=== PATIENT | male | born 1950 | race Caucasian/White ===

== ENCOUNTER → 2018-03-05 07:56 | Outpatient (CLI) | payer BC, SELFPAY ==
[2018-03-05 09:44] LABS: Blood Urea Nitrogen 23 mg/dL (9-20); Calcium 9.4 mg/dL (8.4-10.2); Carbon Dioxide 30 mmol/L (22-32); Chloride 100 mmol/L (98-107); Cholesterol 195 mg/dL (140-199); Estimated Glomerular Filt Rate > 60.0 mL/min (>60); Glucose 101 mg/dL (80-110); HDL Cholesterol 36 mg/dL (40-60); HEMOLYSIS < 15 (0-50); LDL Cholesterol Calculated 131 mg/dL (<100); Potassium 4.2 mmol/L (3.4-5.1); Sodium 139 mmol/L (137-145); Triglycerides 138 mg/dL (35-150)
[2018-03-05 10:12] LABS: Prostate Specific Antigen Scrn 2.31 ng/mL (0.1-4.0)
== END ==
PROVIDERS: Visit Provider Physician Assistant
DX: I10 Essential (primary) hypertension (principal); E78.2 Mixed hyperlipidemia; G60.9 Hereditary and idiopathic neuropathy, unspecified
CPT/HCPCS: 36415; 80048; 80061; G0103

== ENCOUNTER → 2019-02-11 08:26 | Outpatient (CLI) | payer BC, SELFPAY ==
[2019-02-11 10:57] LABS: Alanine Aminotransferase 45 IU/L (21-72); Albumin 4.7 g/dL (3.5-5.0); Albumin Globulin Ratio 1.7 (1.0-2.8); Alkaline Phosphatase 56 U/L (38-126); Aspartate Aminotransferase 35 IU/L (17-59); BUN Creatinine Ratio 24.4 (6-22); Bilirubin Total 0.7 mg/dL (0.2-1.3); Blood Urea Nitrogen 22 mg/dL (9-20); Calcium 9.4 mg/dL (8.4-10.2); Carbon Dioxide 27 mmol/L (22-32); Chloride 102 mmol/L (98-107); Cholesterol 208 mg/dL (140-199); Estimated Glomerular Filt Rate > 60.0 mL/min (>60); Globulin 2.8 g/dL (1.7-4.1); Glucose 97 mg/dL (80-110); HDL Cholesterol 32 mg/dL (40-60); HEMOLYSIS < 15 (0-50); LDL Cholesterol Calculated 124 mg/dL (<100); Potassium 3.7 mmol/L (3.4-5.1); Sodium 139 mmol/L (137-145); Total Protein 7.5 g/dL (6.3-8.2); Triglycerides 259 mg/dL (35-150)
== END ==
PROVIDERS: PCP Internal Medicine; Visit Provider Internal Medicine
DX: I10 Essential (primary) hypertension (principal); R53.83 Other fatigue; E78.2 Mixed hyperlipidemia
CPT/HCPCS: 36415; 80053; 80061

== ENCOUNTER → 2020-01-02 06:59 | Outpatient (CLI) | payer BC, SELFPAY ==
[2020-01-03 12:08] LABS: SARS CoV19 IgG Negative (Negative)
== END ==
PROVIDERS: PCP Internal Medicine; Referring Provider Internal Medicine; Visit Provider Internal Medicine
DX: Z71.89 Other specified counseling (principal)
CPT/HCPCS: 36415; 86769

== ENCOUNTER → 2020-03-01 07:01 | Outpatient (CLI) | payer BC, SELFPAY ==
--- NOTE | 2020-03-01 | DI.MRI.S_ITS ---
PROCEDURE: MR HEAD/BRAIN WO/W CON INDICATIONS: Headache TECHNIQUE: Noncontrast axial T1 spin echo, axial T2 fast spin echo, sagittal and axial FLAIR, coronal T2 fast spin echo, axial gradient echo, axial diffusion and ADC through the brain. After the administration of contrast, axial and coronal T1 spin echo with fat saturation through the brain. COMPARISON: None. FINDINGS: Image quality: Excellent. CSF spaces: Basal cisterns are patent. No extra-axial fluid collections. Ventricles are normal in size and shape. Brain: No midline shift. No intracranial bleeds or masses. No abnormal intracranial enhancement. There is cerebral volume loss for age. There is periventricular white matter chronic small vessel ischemic change. There is a 10 mm diameter focus of moderate FLAIR signal elevation within the left posterolateral frontal lobe subcortical white matter. The brainstem appears normal. Diffusion-weighted images demonstrate no acute ischemic insults. No chronic ischemic insults. Normal intravascular flow voids are present. Skull and face: Calvarial marrow is normal in signal. Orbits appear normal. Sinuses: Sinuses and mastoids appear clear. IMPRESSION: 1. Mild volume loss. Minimal small vessel ischemic disease. 2. High FLAIR signal focus within the left frontal subcortical white matter. Differential considerations include small vessel ischemic disease versus migraine. 3. No acute process. No recent infarct. Dictated by: Ganesh Orellana M.D. on 03/01/2020 at 8:18 Approved by: Ganesh Orellana M.D. on 03/01/2020 at 8:20
== END ==
PROVIDERS: PCP Internal Medicine; Referring Provider Internal Medicine; Visit Provider Internal Medicine
DX: R51 Headache (principal)
CPT/HCPCS: 70553

== ENCOUNTER → 2020-04-17 06:53 | Outpatient (CLI) | payer BC, SELFPAY ==
--- NOTE | 2020-04-17 | DI.RAD.S_ITS ---
PROCEDURE: XR CHEST 2V INDICATIONS: Pulmonary cause of hyponatremia TECHNIQUE: 2 views of the chest were acquired. COMPARISON: [facility], , CHEST 1 VIEW, 06/07/2016, 3:35. FINDINGS: Surgical changes and devices: None. Lungs and pleura: Lungs are clear. No pleural effusions or pneumothorax. Mediastinum: Mediastinal contours are normal. Heart size is normal. Bones and chest wall: No suspicious bony abnormalities. Soft tissues appear unremarkable. IMPRESSION: No acute pulmonary process. Dictated by: Sherron Cuevas M.D. on 04/17/2020 at 14:38 Approved by: Sherron Cuevas M.D. on 04/17/2020 at 14:38
[2020-04-17 08:47] LABS: Sodium Urine Random 92 mmol/L (30-90)
[2020-04-17 09:23] LABS: BUN Creatinine Ratio 14.8 (6-22); Blood Urea Nitrogen 12 mg/dL (9-20); Calcium 9.6 mg/dL (8.4-10.2); Carbon Dioxide 28 mmol/L (22-32); Chloride 93 mmol/L (98-107); Estimated Glomerular Filt Rate > 60.0 mL/min (>60); Glucose 101 mg/dL (80-110); HEMOLYSIS < 15 (0-50); Potassium 2.9 mmol/L (3.4-5.1); Sodium 134 mmol/L (137-145)
[2020-04-18 14:25] LABS: Osmolality Urine 417 mOsmol/kg (.); Osmolality, Serum 277 mOsmol/kg (280-301)
== END ==
PROVIDERS: PCP Internal Medicine; Referring Provider Internal Medicine; Visit Provider Internal Medicine
DX: E87.1 Hypo-osmolality and hyponatremia (principal); E87.6 Hypokalemia
CPT/HCPCS: 36415; 71046; 80048; 83930; 83935; 84300

== ENCOUNTER → 2020-12-12 07:33 | Outpatient (CLI) | payer BC, SELFPAY ==
--- NOTE | 2020-12-12 | DI.ECHO.S_ITS ---
[place] +---------+ [facility] +---------+ : : [address] : : : : [id number] : : : : Phone: [phone] Echocardiogram Report + + :Name: VAISHNAVI JACOB Study Date: 12/12/2020 Height: 70 in : :[facility] ReadingLocation: Weight: 215 lb : : Gender: Male BSA: 2.2 m2 : :: 1950 Age: 70 yrs BP: 180/82 mmHg: :Reason For Study: Edema : :Ordering Physician: CHRISTOFER, : :GERRY Performed By: Aniceto Khoury : :Referring: GERRY BEAULIEU : + + Interpretation Summary Sinus bradycardia. Heart rate is 49-71 bpm. Normal LV size and wall thickness. Normal wall motion and LV systolic function. EF is 60-65%. Normal chamber sizes. No significant valvular abnormalities. PA systolic pressure is 40 mm Hg. Compared to prior study no changes have occurred. Procedure: A two-dimensional transthoracic echocardiogram with color flow and Doppler was performed. The study quality was technically adequate. Comparison is made with the echocardiogram of 07/15/2018. The patient was in sinus rhythm with heart rates between 49-71 bpm during the exam. Left Ventricle: The left ventricle is normal in size and wall thickness. Left ventricular systolic function is normal. The ejection fraction is estimated to be 60-65%. There are no focal wall motion abnormalities. Diastolic parameters suggest probable normal left ventricular diastolic function and normal filling pressures. Right Ventricle: The right ventricle is normal in size and function. Atria: Both atria are normal in size. There is no Doppler evidence for an interatrial shunt. Mitral Valve: The mitral valve is normal in structure and function. There is trace mitral regurgitation. Aortic Valve: The aortic valve is normal in structure and function. No aortic regurgitation is present. Tricuspid Valve: The tricuspid valve is normal in structure and function. There is mild tricuspid regurgitation. The right ventricular systolic pressure is estimated to be at least 40 mmHg based on an estimated right atrial pressure of 8 mm Hg. Pulmonic Valve: The pulmonic valve is normal in structure and function. There is mild pulmonic regurgitation. Great Vessels: The aortic root is normal size. The ascending aorta could not be visualized. The IVC is dilated (diameter is greater than 2.1 cm) yet it collapses greater than 50% with a sniff. This suggests a right atrial pressure of 8 mm Hg. Pericardium/ Pleura There is no pericardial effusion. There is no pleural effusion. MMode/2D Measurements & Calculations LVIDd: 5.2 cm LVOT diam: 2.1 cm LVIDs: 3.4 cm Ao root diam: 3.3 cm FS: 33.9 % IVSd: 0.94 cm LVPWd: 0.86 cm LV singer. diameter/BSA (cm/m^2): 2.4 LV sys. diameter/BSA (cm/m^2): 1.6 LA A2 area: 18.6 cm2 RA area: 14.2 cm2 LA A4 area: 12.7 cm2 IVC diam: 2.3 cm LA length (vol): 4.7 cm LA vol: 42.8 ml LA vol index: 19.9 ml/m2 RVD1 (basal): 3.5 cm TAPSE: 2.1 cm Doppler Measurements & Calculations Ao V2 max: 134.6 cm/sec LVOT Max Howard: 128.3 cm/sec Ao V2 mean: 90.2 cm/sec LV V1 max P.6 mmHg Ao max P.2 mmHg LV V1 VTI: 27.8 cm Ao mean P.6 mmHg JAIRO(I,D): 3.5 cm2 Ao V2 VTI: 28.1 cm JAIRO(V,D): 3.3 cm2 sev ratio: 0.99 JAIRO indexed to BSA (cm^2/m^2): 1.6 MV E max howard: 93.0 cm/sec TR max howard: 288.0 cm/sec MV A max howard: 78.0 cm/sec TR max P.2 mmHg MV E/A: 1.2 PA V2 max: 96.1 cm/sec Med Peak E' Howard: 9.1 cm/sec PA V2 mean: 70.0 cm/sec E/E' med: 10.3 PA mean P.1 mmHg Lat Peak E' Howard: 12.4 cm/sec PA pr(Accel): 27.1 mmHg E/E' lat: 7.5 E/e' average: 8.9 MV dec time: 0.25 sec SV(LVOT): 97.6 ml Electronically signed by: Rajwinder Peralta M.D. on Reading Physician:12/13/2020 12:35 AM
== END ==
PROVIDERS: PCP Student in an Organized Health Care Education/Training Program; Referring Provider Student in an Organized Health Care Education/Training Program; Visit Provider Student in an Organized Health Care Education/Training Program
DX: I07.1 Rheumatic tricuspid insufficiency (principal); R60.9 Edema, unspecified
CPT/HCPCS: 93306

== ENCOUNTER → 2022-01-02 09:39 | Outpatient (CLI) | payer MEDICARE, OTHER, SELFPAY ==
--- NOTE | 2022-01-02 09:45 | DI.RAD.S_ITS ---
PROCEDURE: XR KNEE RT 3V INDICATIONS: KNEE PAIN TECHNIQUE: 3 views of the knee were acquired. COMPARISON: None. FINDINGS: Bones: No acute fractures or dislocations. No suspicious bony lesions. Mild narrowing of the medial femorotibial compartment joint space and the lateral portion of the patellofemoral compartment joint space. Soft tissues: No joint effusion. No suspicious soft tissue calcifications. IMPRESSION: Mild osteoarthrosis. No acute osseous abnormality. If the symptoms persist, consider cross sectional imaging such as MRI or CT for further assessment. Dictated by: Harpal Stovall M.D. on 01/02/2022 at 10:25 Approved by: Harpal Stovall M.D. on 01/02/2022 at 10:26
== END ==
PROVIDERS: PCP Nurse Practitioner Family; Referring Provider Nurse Practitioner Family; Visit Provider Nurse Practitioner Family
DX: M17.11 Unilateral primary osteoarthritis, right knee (principal); M25.561 Pain in right knee
CPT/HCPCS: 73562

== ENCOUNTER → 2022-09-27 13:57 | Outpatient (CLI) | payer MEDICARE, OTHER, SELFPAY ==
--- NOTE | 2022-09-27 14:14 | DI.MRI.S_ITS ---
PROCEDURE: MR CERVICAL SPINE WO/W CON INDICATIONS: Unspecified mononeuropathy of bilateral upper limb TECHNIQUE: Noncontrast sagittal T1 spin echo and T2 fast spin echo, sagittal STIR, foraminal oblique sagittal T2 fast spin echo, axial gradient echo or T2 fast spin echo through the cervical spine. After the administration of contrast, axial and sagittal T1 spin echo with fat saturation through the cervical spine. COMPARISON: None. FINDINGS: Image quality: Excellent. Alignment and curvature: There is normal bony alignment. Marrow: Marrow is normal in overall signal, without suspicious enhancement. Spinal cord: Visualized spinal cord has normal size and signal. No cerebellar tonsillar herniation. No abnormal intramedullary enhancement. Regional soft tissues: No paravertebral masses or suspicious enhancement. C2-3: No spinal canal stenosis. Mild neural foraminal narrowing on the right due to facet and uncovertebral hypertrophy. C3-4: Moderate bilateral neural foraminal narrowing due to facet and uncovertebral hypertrophy. Mild spinal canal stenosis due to posterior disc-osteophyte complex without mass effect upon the cord. C4-5: Mild flattening of the ventral cord by posterior disc osteophyte complex. Severe bilateral neural foraminal narrowing due to facet and uncovertebral hypertrophy. C5-6: Moderate to severe bilateral neural foraminal narrowing due to facet and uncovertebral hypertrophy, right greater than left. Mild flattening of the ventral cord due to posterior disc osteophyte complex. C6-7: Mild spinal canal stenosis due to posterior disc osteophyte complex. Severe right and moderate left neural foraminal narrowing due to facet and uncovertebral hypertrophy. C7-T1: Mild neural foraminal narrowing without spinal canal stenosis. IMPRESSION: Multilevel multifactorial degenerative changes as detailed above with varying degrees of neural foraminal stenosis up to severe. Dictated by: Vance Flores M.D. on 09/28/2022 at 15:16 Approved by: Vance Flores M.D. on 09/28/2022 at 15:18
== END ==
PROVIDERS: PCP Nurse Practitioner Family; Referring Provider Nurse Practitioner Family; Visit Provider Nurse Practitioner Family
DX: M47.812 Spondylosis without myelopathy or radiculopathy, cervical region (principal); M48.02 Spinal stenosis, cervical region; G56.93 Unspecified mononeuropathy of bilateral upper limbs
CPT/HCPCS: 72156; A9579

== ENCOUNTER → 2024-03-02 07:36 | Outpatient (CLI) | payer MEDICARE, OTHER, SELFPAY ==
--- NOTE | 2024-03-02 | DI.US.S_ITS ---
PROCEDURE: US ABDOMEN COMPLETE COMPARISON: None. INDICATIONS: Abnormal levels of other serum enzymes,Proton pump FINDINGS: Liver is normal in size and contour. . Gallbladder is normal with no thickening of gallbladder wall or pericholecystic fluid.. Common bile duct is prominent measuring 7 mm in diameter. Pancreas not visualized due to overlying bowel gas. Kidneys: Simple cyst right kidney measuring 1.7 by 1.4 x 1.5 cm. No hydronephrosis. IMPRESSION: Simple cyst in the right kidney. Common bile duct is prominent. Dictated by: Lit Paulson M.D. on 03/02/2024 at 11:09 Approved by: Lit Paulson M.D. on 03/02/2024 at 11:20
== END ==
PROVIDERS: PCP Nurse Practitioner Family; Referring Provider Nurse Practitioner Family; Visit Provider Nurse Practitioner Family
DX: R79.89 Other specified abnormal findings of blood chemistry (principal); R74.8 Abnormal levels of other serum enzymes; Z91.89 Other specified personal risk factors, not elsewhere classified; N28.1 Cyst of kidney, acquired
CPT/HCPCS: 76700

== ENCOUNTER → 2024-04-13 09:39 | Outpatient (CLI) | payer MEDICARE, OTHER, SELFPAY ==
--- NOTE | 2024-04-13 09:41 | DI.RAD.S_ITS ---
PROCEDURE: XR DEXA AXIAL SKELETON INDICATIONS: SCREENING COMPARISON: None. FINDINGS: Lumbar Spine: Bone mineral density 1.401 g/cm2, T score 3.5. Left Hip: Bone mineral density 1.155 g/cm2, T score 1.7. Left Femoral Neck: Bone mineral density 0.824 g/cm2, T score -0.2. Right Hip: Bone mineral density 1.152 g/cm2, T score 1.7. Right Femoral Neck: Bone mineral density is 0.904 g/cm2, T score 0.5. Fracture Risk Calculation (when applicable): FRAX score not reported due to T-scores greater than -1.0. (T score greater or equal to -1.0 to: NORMAL) (T score from -1.1 to -2.4: OSTEOPENIA) (T score less than or equal to -2.5: OSTEOPOROSIS) IMPRESSION: By WHO criteria, patient has normal bone mineral density. Follow-up guidelines as follows: Osteoporosis: Consider a repeat DEXA and Vertebral Fracture Assessment (VFA) exam in 2 years or sooner if medically necessary, to reassess this patient's status. Osteopenia: Consider a repeat DEXA in 2-3 years to reassess this patient's status, or if there is a new clinical indication. Normal: Consider a repeat DEXA in 5 years or sooner, or if there is a new clinical indication. All treatment decisions require clinical judgment and consideration of individual patient factors, including patient preferences, comorbidities, previous drug use, risk factors not captured in the FRAX model (e.g., frailty, falls, vitamin D deficiency, increased bone turnover, interval significant decline in bone density ) and possible under- or over-estimation of fracture risk by FRAX. In addition, the NOF Guide recommends that FDA-approved medical therapies be considered in postmenopausal women and men age >= 50 years with a: * Hip or vertebral (clinical or morphometric) fracture * T-score of <=-2.5 at the spine or hip * Ten-year fracture probability by FRAX of >= 3% for hip fracture or >=20% for major osteoporotic fracture. People with diagnosed cases of osteoporosis or at high risk for fracture should have regular bone mineral density tests. For patients eligible for Medicare, routine testing is allowed once every 2 years. The testing frequency can be increased to one year for patients who have rapidly progressing disease, those who are receiving or discontinuing medical therapy to restore bone mass, or have additional risk factors. Approved by: Harpal Stovall M.D. on 04/13/2024 at 12:43
== END ==
LOC: RAD 09:40
PROVIDERS: PCP Nurse Practitioner Family; Referring Provider Nurse Practitioner Family; Visit Provider Nurse Practitioner Family
DX: Z13.820 Encounter for screening for osteoporosis; R93.7 Abnormal findings on diagnostic imaging of other parts of musculoskeletal system
CPT/HCPCS: 77080

== ENCOUNTER 2024-04-16 12:21 | Inpatient (IN) | payer MEDICARE, OTHER, SELFPAY ==
[2024-04-16] VITALS (12 sets, daily range): BP systolic 158–175; BP diastolic 67–78; PULSE 63–78; RESP 14–16; TEMP 36.4–36.8; O2SAT 92–97; BMI 32.6
--- NOTE | 2024-04-16 12:50 | ED_ITS ---
HPI - General Adult General Chief complaint: Abdominal Pain Stated complaint: abd px, vomiting Time Seen by Provider: 04/16/24 12:39 Source: patient Mode of arrival: Family Vehicle History of Present Illness HPI narrative: Patient is a 73-year-old male here for evaluation of abdominal pain, bloating and vomiting. He states that the symptoms started approximately 0700 hours this morning. Went to bed last night without any issues. Woke up this morning without any symptoms. Urinating without any issues. Had a bowel movement this morning. Is still passing flatus. He does have an umbilical hernia that has been there for years. He has been unable to reduce it this morning. Related Data Home Medications Medication Instructions Recorded Confirmed chlorthalidone 25 mg tablet 50 mg PO QAM 04/16/24 04/16/24 diltiazem HCl 240 mg 240 mg PO DAILY 04/16/24 04/16/24 capsule,extended release 24 hr, controlled diltiazem HCl 240 mg 240 mg PO DAILY 04/16/24 04/16/24 capsule,extended release 24 hr, controlled losartan 100 mg tablet 100 mg PO DAILY 04/16/24 04/16/24 losartan 100 mg tablet 100 mg PO DAILY 04/16/24 04/16/24 metoprolol succinate 50 mg 25 mg PO QAM 04/16/24 04/16/24 tablet,extended release 24 hr metoprolol succinate 50 mg 25 mg PO QAM 04/16/24 04/16/24 tablet,extended release 24 hr potassium chloride 10 mEq 10 meq PO 4XD 04/16/24 04/16/24 tablet,extended release tadalafil 10 mg tablet 5 - 10 mg PO DAILY PRN Erectile 04/16/24 04/16/24 Dysfunction Allergies Allergy/AdvReac Type Severity Reaction Status Date / Time No Known Drug Allergies Allergy Verified 04/16/24 12:46 Review of Systems Review of Systems ROS Unobtainable: All systems reviewed & are unremarkable except as noted in HPI and below Patient History Social History Smoking Status: Never smoker Smoking Status: Never smoker alcohol intake frequency: 0-2 drinks per day Substance Use Type: does not use Exam Initial Vital Signs Initial Vital Signs: Vital Signs Pulse Rate 73 04/16/24 12:26 Pulse Oximetry 96 04/16/24 12:26 Const General: cooperative, comfortable and No ill appearing [facility] Head: normal to inspection and normocephalic Resp Effort & Inspection: normal respiratory effort Cardio Rate: regular rate GI Inspection: distended Palpation: soft, No guarding, hernia (Umbilical hernia) and tender Skin General: no rashes or lesions noted Neuro General: patient alert, patient awake, patient oriented x3 and moves all extremities Extrem General: capillary refill normal Course Orders Ordered: ED Orders 04/16/24 12:32 Complete Blood Count AUTO DIFF Stat Comprehensive Metabolic Panel Stat Lipase Stat 04/16/24 13:37 CT abdomen pelvis w con Stat 04/16/24 14:23 Consult to General Surgery Stat Heparin Sodium (Porcine) (Heparin 5,000 Unit/Ml Vial) 5,000 unit SUBCUT BID EVA Hydromorphone HCl (Hydromorphone 0.5 Mg Inj) 0.5 mg IV Q2H PRN PRN Reason: Pain, Severe (7-10) Sodium Chloride (Normal Saline 0.9%) 1,000 mls @ 100 mls/hr IV CONT EVA Naloxone HCl (Naloxone 0.4 Mg/Ml Vial) 0.2 mg IV Q2MIN PRN PRN Reason: Opiate Reversal Ondansetron HCl (Ondansetron 4 Mg/2 Ml Inj) 4 mg IV Q6HR PRN PRN Reason: nausea Discontinued Medications Sodium Chloride (Normal Saline 0.9%) 1,000 mls @ 500 mls/hr IV BOLUS ONE Stop: 04/16/24 14:57 Last Admin: 04/16/24 13:04 Dose: 500 mls/hr Documented By: DENI Morphine Sulfate (Morphine 4 Mg/Ml Inj) 4 mg IV NOW ONE Stop: 04/16/24 12:59 Last Admin: 04/16/24 13:03 Dose: 4 mg Documented By: TC Vital Signs Vital signs: Vital Signs - 8 hr 04/16/24 12:26 04/16/24 12:27 04/16/24 12:27 Temperature 98.2 F Pulse Rate 73 73 74 Respiratory Rate 16 Blood Pressure 175/78 H Pulse Oximetry 96 97 96 Oxygen Delivery Method Room Air 04/16/24 12:27 04/16/24 12:30 04/16/24 12:30 Temperature Pulse Rate 72 Respiratory Rate Blood Pressure 175/78 H 165/77 H Pulse Oximetry 94 Oxygen Delivery Method 04/16/24 13:00 04/16/24 13:00 04/16/24 13:35 Temperature Pulse Rate 70 70 Respiratory Rate Blood Pressure 165/72 H Pulse Oximetry 95 Oxygen Delivery Method 04/16/24 14:00 04/16/24 14:30 Temperature Pulse Rate 69 78 Respiratory Rate Blood Pressure Pulse Oximetry 92 93 Oxygen Delivery Method Medical Decision Making Lab Data Lab results reviewed: Yes I reviewed the patient's lab results. 04/16/24 12:32 04/16/24 12:32 Labs: Lab Results 04/16/24 Range/Units 12:32 WBC 8.5 (4.5-11.0) X10^3/uL RBC 4.98 (4.5-5.9) X10^6/uL Hgb 15.0 (13.5-17.5) g/dL Hct 43.7 (41-53) % MCV 87.7 (80-100) fL MCH 30.2 (26-34) PG MCHC 34.4 (30-36) % RDW 13.0 (11.6-14.8) % Plt Count 195 (150-400) X10^3/uL Neut % (Auto) 70.8 (50-75) % Lymph % (Auto) 14.7 L (25-40) % [place] % (Auto) 11.7 (3-14) % Eos % (Auto) 1.3 L (2-4) % Baso % (Auto) 1.5 (0-2) % Neut # (Auto) 6000 (5398-3085) /uL Lymph # (Auto) 1200 (0381-0468) /uL [place] # (Auto) 1000 H (0-900) /uL Eos # (Auto) 100 (0-450) /uL Baso # (Auto) 100 (0-100) /uL Sodium 139 (137-145) mmol/L Potassium 3.5 (3.4-5.1) mmol/L Chloride 106 (98-107) mmol/L Carbon Dioxide 22 (22-32) mmol/L BUN 25 H (9-20) mg/dL Creatinine 1.01 (0.66-1.25) mg/dL Estimated GFR > 60 (>60) mL/min BUN/Creatinine Ratio 24.8 H (6-22) Glucose 124 H (80-110) mg/dL Calcium 10.0 (8.4-10.2) mg/dL Total Bilirubin 0.7 (0.2-1.3) mg/dL AST 108 H (17-59) IU/L ALT 177 H (<50) IU/L Alkaline Phosphatase 86 (38-126) U/L Total Protein 8.1 (6.3-8.2) g/dL Albumin 4.7 (3.5-5.0) g/dL Globulin 3.4 (1.7-4.1) g/dL Albumin/Globulin Ratio 1.4 (1.0-2.8) Lipase 110 (23-300) U/L Imaging Data CT scan - abdomen/pelvis: Radiologist's Impression: PROCEDURE: CT ABDOMEN PELVIS W CON INDICATIONS: Abdominal distention and vomiting, TECHNIQUE: After the administration of intravenous contrast, axial sections acquired from the lung bases to the pubic symphysis. Coronal and sagittal reformats were performed. For radiation dose reduction, the following was used: automated exposure control, adjustment of mA and/or kV according to patient size. COMPARISON: None. FINDINGS: Image quality: Diagnostic. Lower Chest: No significant findings. ABDOMEN: Liver: No solid mass. Gallbladder: No radiopaque gallstones or wall thickening. Biliary ducts: No biliary dilation. Pancreas: No ductal dilation. Spleen: Size is within normal limits. Adrenal Glands: No adrenal nodules. Kidneys and Ureters: No hydronephrosis. No solid mass. No complex renal cystic lesion which requires follow up. Stomach and Bowel: Dilated loops of small bowel within the anterior abdomen starting at the mid jejunum extending to the mid ileum. This area has air-fluid levels and lies immediately posterior to a small umbilical hernia. There is mild inflammatory changes of the fat within the umbilical hernia. The current loops of bowel do not enter the hernia sac. There is no transition point and the gradual transit to normal caliber bowel by the mid ileum. Scattered colonic diverticula without evidence of acute diverticulitis. Peritoneum: No abnormal intraperitoneal fluid. No free air. Ventral Wall: Small fat containing umbilical hernia with mild inflammatory changes within the hernia sac. Abdominal Nodes: No retroperitoneal or mesenteric adenopathy by size criteria. Vessels: Aorta and inferior vena cava are normal in size. PELVIS: Pelvic Organs: Unremarkable. Bladder: No bladder wall thickening, accounting for underdistention. Pelvic Nodes: No enlarged lymph nodes. Miscellaneous: No inguinal hernias are seen. Bones: No aggressive osseous abnormality. Large Schmorl nodes of L4-L5. Multilevel moderate disc disease most prominent at L5-S1 IMPRESSION: 1. Small bowel obstruction without discrete transition point. Secondary cause of the obstruction is not identified by CT. The umbilical hernia may have previously contained a loop of bowel which caused the obstruction which is reduced prior to CT evaluation. Correlate with clinical history. 2. Small fat containing umbilical hernia with mild inflammatory changes. 3. Moderate degenerative changes of the lumbar spine. MDM Narrative Medical decision making narrative: CT scan does show signs of bowel obstruction. A question whether or not the bowel obstruction was caused by the umbilical hernia that was reduced prior to his CT scan. Patient states that his abdominal pain is improving since reduction of the umbilical hernia. I did discuss the case with Dr. Robin with general surgery who asked that the patient be admitted to the medicine service. Patient will remain NPO. Discussed case with Dr. Perez hospitalist on-call who will admit. Discussed the findings of the CT scan with the family. Discussed the need for admission for observation. They expressed understanding and agreement with plan. Discharge Plan Departure Patient Disposition: Admitted as Observation Clinical Impression: Small bowel obstruction, Umbilical hernia Admit Date/Time: 04/16/24 14:34 Admit Provider: Zia Perez
[2024-04-16 12:57] LABS: Add Manual Diff / Slide Review NO; Basophils Absolute Auto 100 /uL (0-100); Basophils Percent Auto 1.5 % (0-2); Eosinophils Absolute Auto 100 /uL (0-450); Eosinophils Percent Auto 1.3 % (2-4); Hematocrit 43.7 % (41-53); Lymphocytes Absolute Auto 1200 /uL (1100-4500); Lymphocytes Percent Auto 14.7 % (25-40); Mean Corpuscular HGB Conc 34.4 % (30-36); Mean Corpuscular Hemoglobin 30.2 PG (26-34); Mean Corpuscular Volume 87.7 fL (80-100); Monocytes Absolute Auto 1000 /uL (0-900); Monocytes Percent Auto 11.7 % (3-14); Neutrophils Absolute Auto 6000 /uL (1500-7000); Neutrophils Percent Auto 70.8 % (50-75); Platelet Count 195 X10^3/uL (150-400); Red Blood Cell Count 4.98 X10^6/uL (4.5-5.9); White Blood Cell Count 8.5 X10^3/uL (4.5-11.0)
[2024-04-16] MEDS: MORPHINE 4 MG/ML INJ IV (13:03)
[2024-04-16] MEDS: SODIUM CHLORIDE 0.9% 1,000 ML 500 ML IV (13:04)
[2024-04-16 13:13] LABS: Alanine Aminotransferase 177 IU/L (<50); Albumin 4.7 g/dL (3.5-5.0); Albumin Globulin Ratio 1.4 (1.0-2.8); Alkaline Phosphatase 86 U/L (38-126); Aspartate Aminotransferase 108 IU/L (17-59); BUN Creatinine Ratio 24.8 (6-22); Bilirubin Total 0.7 mg/dL (0.2-1.3); Blood Urea Nitrogen 25 mg/dL (9-20); Carbon Dioxide 22 mmol/L (22-32); Chloride 106 mmol/L (98-107); Estimated Glomerular Filt Rate > 60 mL/min (>60); Globulin 3.4 g/dL (1.7-4.1); Glucose 124 mg/dL (80-110); HEMOLYSIS < 15 (0-50); Lipase 110 U/L (23-300); Potassium 3.5 mmol/L (3.4-5.1); Sodium 139 mmol/L (137-145); Total Protein 8.1 g/dL (6.3-8.2)
--- NOTE | 2024-04-16 13:37 | DI.CT.S_ITS ---
PROCEDURE: CT ABDOMEN PELVIS W CON INDICATIONS: Abdominal distention and vomiting, TECHNIQUE: After the administration of intravenous contrast, axial sections acquired from the lung bases to the pubic symphysis. Coronal and sagittal reformats were performed. For radiation dose reduction, the following was used: automated exposure control, adjustment of mA and/or kV according to patient size. COMPARISON: None. FINDINGS: Image quality: Diagnostic. Lower Chest: No significant findings. ABDOMEN: Liver: No solid mass. Gallbladder: No radiopaque gallstones or wall thickening. Biliary ducts: No biliary dilation. Pancreas: No ductal dilation. Spleen: Size is within normal limits. Adrenal Glands: No adrenal nodules. Kidneys and Ureters: No hydronephrosis. No solid mass. No complex renal cystic lesion which requires follow up. Stomach and Bowel: Dilated loops of small bowel within the anterior abdomen starting at the mid jejunum extending to the mid ileum. This area has air-fluid levels and lies immediately posterior to a small umbilical hernia. There is mild inflammatory changes of the fat within the umbilical hernia. The current loops of bowel do not enter the hernia sac. There is no transition point and the gradual transit to normal caliber bowel by the mid ileum. Scattered colonic diverticula without evidence of acute diverticulitis. Peritoneum: No abnormal intraperitoneal fluid. No free air. Ventral Wall: Small fat containing umbilical hernia with mild inflammatory changes within the hernia sac. Abdominal Nodes: No retroperitoneal or mesenteric adenopathy by size criteria. Vessels: Aorta and inferior vena cava are normal in size. PELVIS: Pelvic Organs: Unremarkable. Bladder: No bladder wall thickening, accounting for underdistention. Pelvic Nodes: No enlarged lymph nodes. Miscellaneous: No inguinal hernias are seen. Bones: No aggressive osseous abnormality. Large Schmorl nodes of L4-L5. Multilevel moderate disc disease most prominent at L5-S1 IMPRESSION: 1. Small bowel obstruction without discrete transition point. Secondary cause of the obstruction is not identified by CT. The umbilical hernia may have previously contained a loop of bowel which caused the obstruction which is reduced prior to CT evaluation. Correlate with clinical history. 2. Small fat containing umbilical hernia with mild inflammatory changes. 3. Moderate degenerative changes of the lumbar spine. Dictated by: iTmi Flores M.D. on 04/16/2024 at 12:52 Approved by: Timi Flores M.D. on 04/16/2024 at 13:00
--- NOTE | 2024-04-16 14:23 | PM.CN ---
History of Present Illness Consult details Date Patient Seen: 04/16/24 Time Patient Seen: 14:23 Chief complaint: abd px, vomiting Reason for consult: PSBO?? Narrative: SURGICAL CONSULTATION Date of Admission: 04/16/24 Date of Consultation: 04/16/24 PCP: CHANTALE Mead Thank you Dr. TEE very much for your consultation, it's always appreciated. I had the privilege today to see your patient Andrzej Gonzales. Chief Complaint / History of Present Illness: Andrzej Gonzales is a very pleasant 73 yo who presents with pain in the Umbilical hernia that he had for years, reduced by ER physician, and CT revealed a PSBO, no transition point, feels better now, NO nausea, even though he had nausea and vomiting this morning after he moved his bowels. Will follow and treat. Review of Systems: Constitutional: Negative for fever, chills, diaphoresis, appetite change and fatigue. HENT: Negative for sore throat, trouble swallowing and voice change. Respiratory: Negative for cough, positive for shortness of breath no wheezing. Cardiovascular: Negative for chest pain positive for SOB with one flight of stairs exertion, no pitting LE edema. Gastrointestinal: Positive for nausea, vomiting, abdominal distention, no constipation, no diarrhea, blood in stool, anal bleeding or rectal pain. Musculoskeletal: Negative for joint swelling and arthralgias. Skin: Warm and dry, well perfused. Neurological: Negative for seizures, syncope, speech difficulty and weakness. Hematological/Lymphatic: Negative for adenopathy. No history of DVT/PE. Does not bruise/bleed easily. Psychiatric/Behavioral: Negative for agitation. All others reviewed and negative. Physical Exam: General appearance: Pt Alert and oriented, in no apparent acute distress. HEENT: [place]H, Conjunctiva clear. EOMI, No JVDs, Bruits, Megalies: neither thyroid nor lymph nodes. Lungs: Clear to auscultation bilaterally. Heart: Regular rate and rhythm, S1, S2 normal, no murmur, rub or gallop. Abdomen: Mildly diffusely tender. Mildly distended. Positive bowel sounds. No hernias noted, no masses palpable. Extremities: Warm, well perfused, no cyanosis or edema. Skin: Skin color, texture, turgor normal. Neurologic: Grossly normal, Cranial nerves from II to XII intact, Deep tendon reflexes normal. Lymph nodes: No palpable LNs, Cervical, groins, abdominal. Musculoskeletal: Bilateral Upper and lower extremities ROM within normal limits. Radiologic / Imaging / TESTING See CT. Assessment & plan: Andrzej Gonzales is a very pleasant 73 Male presenting with PSBO, Keep NPO, IVF, pain control nausea control, and IF vomits once, will NEED NG tube to Low intermittent suction, will follow, and recommend repair of his umbilical hernia soon. Continue NPO/Bowel rest, IV Fluids, Pain control, Nausea control. Thank you doctor very much for your consultation and for the opportunity to take care of Mr Gonzales with you, I'll follow along with you and I'll update you on any new events in his care. Meds Home Medications and Allergies Allergies Allergy/AdvReac Type Severity Reaction Status Date / Time No Known Drug Allergies Allergy Verified 04/16/24 12:46 Exam Vital Signs (past 8 hours): - 04/16/24 12:26 04/16/24 12:27 04/16/24 12:27 Temperature 98.2 F Pulse Rate 73 73 74 Respiratory Rate 16 Blood Pressure 175/78 H Pulse Oximetry 96 97 96 Oxygen Delivery Method Room Air 04/16/24 12:27 04/16/24 12:30 04/16/24 12:30 Temperature Pulse Rate 72 Respiratory Rate Blood Pressure 175/78 H 165/77 H Pulse Oximetry 94 Oxygen Delivery Method 04/16/24 13:00 04/16/24 13:00 04/16/24 13:35 Temperature Pulse Rate 70 70 Respiratory Rate Blood Pressure 165/72 H Pulse Oximetry 95 Oxygen Delivery Method 04/16/24 14:00 Temperature Pulse Rate 69 Respiratory Rate Blood Pressure Pulse Oximetry 92 Oxygen Delivery Method Oxygen Delivery Method Room Air Objective Labs 04/16/24 12:32 04/16/24 12:32 Labs: Laboratory Results - last 24 hr 04/16/24 12:32 WBC 8.5 RBC 4.98 Hgb 15.0 Hct 43.7 MCV 87.7 MCH 30.2 MCHC 34.4 RDW 13.0 Plt Count 195 Neut % (Auto) 70.8 Lymph % (Auto) 14.7 L [place] % (Auto) 11.7 Eos % (Auto) 1.3 L Baso % (Auto) 1.5 Neut # (Auto) 6000 Lymph # (Auto) 1200 [place] # (Auto) 1000 H Eos # (Auto) 100 Baso # (Auto) 100 Sodium 139 Potassium 3.5 Chloride 106 Carbon Dioxide 22 BUN 25 H Creatinine 1.01 Estimated GFR > 60 BUN/Creatinine Ratio 24.8 H Glucose 124 H Calcium 10.0 Total Bilirubin 0.7 AST 108 H ALT 177 H Alkaline Phosphatase 86 Total Protein 8.1 Albumin 4.7 Globulin 3.4 Albumin/Globulin Ratio 1.4 Lipase 110 PFSH Tobacco & Substance Use Smoking Status: Never smoker Assessment & Plan Time-Based Coding :: [TOTAL MINUTES] spent with patient and on the chart (including review of chart, obtaining history, exam, reviewing outside data, placing orders, documenting exam and treatment plan, and counseling patient) on [DATE].
--- NOTE | 2024-04-16 15:04 | P.HP_ITS ---
History of Present Illness History of Present Illness Date Patient Seen: 04/16/24 Chief complaint: abd px, vomiting Narrative: From ED doctor: Patient is a 73-year-old male here for evaluation of abdominal pain, bloating and vomiting. He states that the symptoms started approximately 0700 hours this morning. Went to bed last night without any issues. Woke up this morning without any symptoms. Urinating without any issues. Had a bowel movement this morning. Is still passing flatus. He does have an umbilical hernia that has been there for years. He has been unable to reduce it this morning. The hernia was reduced by the ED physician. Surgery was consulted this AM. Additional information: He developed acute abdominal pain this morning. This is diffuse and lower abdomen on both the left in the right. He also had a distended and purple umbilical hernia. He was a chronic hernia, which is easy to reduce in his frequently out. It was rarely tender but this morning was very tender. He presented to the ED where the physician reduced the hernia. He was about 50% improved. He was vomiting multiple times this morning before presentation. He notes flatus and BM earlier today. He was history of 2 inguinal hernia repairs but no other abdominal surgery. The surgeon saw him in the ED and recommends NPO, and analgesia. CT abdomen had the appearance of a bowel obstruction without a clear transition point. [facility] Social History household members: spouse Smoking Status: Never smoker alcohol intake: current Meds Home Medications and Allergies Home Medications Medication Instructions Recorded Confirmed Type chlorthalidone 25 mg tablet 25 mg PO QAM 04/16/24 04/16/24 History cholecalciferol (vitamin D3) 50 50 mcg PO DAILY 04/16/24 04/16/24 History mcg (2,000 unit) capsule diltiazem HCl 240 mg 240 mg PO DAILY 04/16/24 04/16/24 History capsule,extended release 24 hr, controlled losartan 100 mg tablet 100 mg PO DAILY 04/16/24 04/16/24 History metoprolol succinate 50 mg 25 mg PO QAM 04/16/24 04/16/24 History tablet,extended release 24 hr multivit with minerals-iron 18 1 tab PO DAILY 04/16/24 04/16/24 History mg-folic ac 400 mcg-vit K 25 mcg tablet (Adults Multivitamin) omeprazole 10 mg capsule,delayed 10 mg PO DIRECTED 04/16/24 04/16/24 History release potassium chloride 10 mEq 10 meq PO 4XD 04/16/24 04/16/24 History tablet,extended release tadalafil 10 mg tablet 10 mg PO DAILY PRN Erectile 04/16/24 04/16/24 History Dysfunction Allergies Allergy/AdvReac Type Severity Reaction Status Date / Time No Known Drug Allergies Allergy Verified 04/16/24 12:46 Review of Systems Review of Systems Narrative: All else reviewed and otherwise unremarkable except as noted in the history and physical. Exam Vital Signs (past 8 hours): - 04/16/24 12:26 04/16/24 12:27 04/16/24 12:27 Temperature 98.2 F Pulse Rate 73 73 74 Respiratory Rate 16 Blood Pressure 175/78 H Pulse Oximetry 96 97 96 Oxygen Delivery Method Room Air 04/16/24 12:27 04/16/24 12:30 04/16/24 12:30 Temperature Pulse Rate 72 Respiratory Rate Blood Pressure 175/78 H 165/77 H Pulse Oximetry 94 Oxygen Delivery Method 04/16/24 13:00 04/16/24 13:00 04/16/24 13:35 Temperature Pulse Rate 70 70 Respiratory Rate Blood Pressure 165/72 H Pulse Oximetry 95 Oxygen Delivery Method 04/16/24 14:00 Temperature Pulse Rate 69 Respiratory Rate Blood Pressure Pulse Oximetry 92 Oxygen Delivery Method Oxygen Delivery Method Room Air Narrative Exam Narrative: NAD, alert and oriented, fluent speech, calm. Normocephalic skull, EOMI, anicteric sclera, symmetric pupils. Oropharynx unremarkable, no droop. Neck supple, midline trachea, no adenopathy. Lungs clear, normal rate and effort. Heart regular, no murmur gallop or rub. Abdomen is soft, non distended and non tender. Small umbilical hernia, nontender. Extremities are free of edema. Skin is free of rash or lesions. Joints are not swollen or deformed. Judgment appears to be normal. Objective Imaging CT scan - abdomen: Radiologist's impression: 1. Small bowel obstruction without discrete transition point. Secondary cause of the obstruction is not identified by CT. The umbilical hernia may have previously contained a loop of bowel which caused the obstruction which is reduced prior to CT evaluation. Correlate with clinical history. 2. Small fat containing umbilical hernia with mild inflammatory changes. 3. Moderate degenerative changes of the lumbar spine. Labs 04/16/24 12:32 04/16/24 12:32 Labs: Laboratory Results - last 24 hr 04/16/24 12:32 WBC 8.5 RBC 4.98 Hgb 15.0 Hct 43.7 MCV 87.7 MCH 30.2 MCHC 34.4 RDW 13.0 Plt Count 195 Neut % (Auto) 70.8 Lymph % (Auto) 14.7 L [place] % (Auto) 11.7 Eos % (Auto) 1.3 L Baso % (Auto) 1.5 Neut # (Auto) 6000 Lymph # (Auto) 1200 [place] # (Auto) 1000 H Eos # (Auto) 100 Baso # (Auto) 100 Sodium 139 Potassium 3.5 Chloride 106 Carbon Dioxide 22 BUN 25 H Creatinine 1.01 Estimated GFR > 60 BUN/Creatinine Ratio 24.8 H Glucose 124 H Calcium 10.0 Total Bilirubin 0.7 AST 108 H ALT 177 H Alkaline Phosphatase 86 Total Protein 8.1 Albumin 4.7 Globulin 3.4 Albumin/Globulin Ratio 1.4 Lipase 110 Assessment & Plan Assessment & Plan narrative: 1. Small bowel obstruction, present on admission and improving. 2. Incarcerated umbilical hernia, present on admission and reduced. 3. Hypertension, present on admission and stable. PLAN: -NPO except ice chips. -NG tube to suction if patient has increased symptoms including vomiting. -monitor serial abdominal examination. -analgesia as needed. -hold oral medications, monitor blood pressure. Full resuscitation. Observation status, anticipate 1 night of hospital stay required. ELA is 04/17. Time-Based Coding :: 30 min spent with patient and on the chart (including review of chart, obtaining history, exam, reviewing outside data, placing orders, documenting exam and treatment plan, and counseling patient) on 04/16. Quality MIPS - Admit I confirm the patient?s Advance Care Plan is present, Code status is documented, Surrogate decision maker is in patient?s record [If Yes, STOP here]: Yes MIPS - Meds 'Current medications' to include all prescriptions, [id number] products, herbals, cannabis/cannabidiol products, and vitamin/mineral/dietary (nutritional) supplements. I have utilized all available resources to obtain, update, or review the patient?s current medications. [If Yes, STOP here]: Yes
[2024-04-16] MEDS: SODIUM CHLORIDE 0.9% 1,000 ML 100 ML IV (16:16)
--- NOTE | 2024-04-16 17:32 | PC.NURSE ---
Pt arrived in wheelchair from ED at 1545, able to transfer independently to the bed. A&Ox4, hypertensive but otherwise VSS on MD CHAD aware. C/o 2/10 pain to abdomen, does not want pain meds at this time. Lung sounds CTA, bowel sounds present in all 4 quadrants, pt is not passing gas at this time but does not have any nausea. Pt oriented to room and call light. Bed in low position, call light within reach.
--- NOTE | 2024-04-17 01:40 | PC.NURSE ---
Addendum entered by Marissa Kumar R.N. 04/17/24 06:21: Patient had multiple loose BMs overnight. Denies pain or nausea. Original Note: Patient had moderate, loose BM overnight. States he is passing lots of gas now. Denies pain or nausea.
[2024-04-17] MEDS: SODIUM CHLORIDE 0.9% 1,000 ML 100 ML IV ×2 (02:02→17:52)
[2024-04-17 04:00] VITALS: BP 153/76; PULSE 72; RESP 14; TEMP 36.9; O2SAT 95
[2024-04-17 05:05] LABS: Add Manual Diff / Slide Review NO; Basophils Absolute Auto 100 /uL (0-100); Basophils Percent Auto 0.8 % (0-2); Eosinophils Absolute Auto 400 /uL (0-450); Eosinophils Percent Auto 3.9 % (2-4); Hematocrit 44.8 % (41-53); Hemoglobin 15.3 g/dL (13.5-17.5); Lymphocytes Absolute Auto 2400 /uL (1100-4500); Lymphocytes Percent Auto 24.9 % (25-40); Mean Corpuscular HGB Conc 34.1 % (30-36); Mean Corpuscular Hemoglobin 30.1 PG (26-34); Mean Corpuscular Volume 88.3 fL (80-100); Monocytes Absolute Auto 1100 /uL (0-900); Neutrophils Absolute Auto 5700 /uL (1500-7000); Neutrophils Percent Auto 59.4 % (50-75); Platelet Count 215 X10^3/uL (150-400); Red Blood Cell Count 5.07 X10^6/uL (4.5-5.9); Red Cell Distribution Width 12.9 % (11.6-14.8); White Blood Cell Count 9.6 X10^3/uL (4.5-11.0)
[2024-04-17 05:21] LABS: BUN Creatinine Ratio 17.9 (6-22); Blood Urea Nitrogen 17 mg/dL (9-20); Calcium 9.2 mg/dL (8.4-10.2); Carbon Dioxide 26 mmol/L (22-32); Chloride 105 mmol/L (98-107); Estimated Glomerular Filt Rate > 60 mL/min (>60); Glucose 107 mg/dL (80-110); HEMOLYSIS < 15 (0-50); Potassium 3.3 mmol/L (3.4-5.1); Sodium 140 mmol/L (137-145)
[2024-04-17] MEDS: POTASSIUM CHLORIDE IN WATER 10 MEQ/100 ML PIGGYBACK 100 MEQ IV ×4 (07:07→11:12)
[2024-04-17] MEDS: HEPARIN 5,000 UNIT/ML VIAL 5000 UNIT SUBCUT (09:31)
--- NOTE | 2024-04-17 10:42 | PM.PN.1 ---
Subjective Subjective Date Patient Seen: 04/17/24 Time Patient Seen: 10:42 Exam Vital Signs (past 8 hours): - 04/17/24 04:00 Temperature 98.5 F Pulse Rate 72 Respiratory Rate 14 Blood Pressure 153/76 H Pulse Oximetry 95 Oxygen Flow Rate 0 Oxygen Delivery Method Room Air Oxygen Flow Rate 0 Narrative Exam Narrative: His abdomen is MUCH better, loops of small intestines PAPLATED and REDUCED from the umbilical hernia, NEEDS to be fixed BEFORE discharge, he asked for that and IT IS REASONABLE, will start Full liquids and advance to regular diet for dinner, and NPO after midnight for surgery tomorrow at 11:45 AM. Objective Labs 04/17/24 04:46 04/17/24 04:46 Labs: Laboratory Results - last 24 hr 04/16/24 04/17/24 12:32 04:46 WBC 8.5 9.6 RBC 4.98 5.07 Hgb 15.0 15.3 Hct 43.7 44.8 MCV 87.7 88.3 MCH 30.2 30.1 MCHC 34.4 34.1 RDW 13.0 12.9 Plt Count 195 215 Neut % (Auto) 70.8 59.4 Lymph % (Auto) 14.7 L 24.9 L [place] % (Auto) 11.7 11.0 Eos % (Auto) 1.3 L 3.9 Baso % (Auto) 1.5 0.8 Neut # (Auto) 6000 5700 Lymph # (Auto) 1200 2400 [place] # (Auto) 1000 H 1100 H Eos # (Auto) 100 400 Baso # (Auto) 100 100 Sodium 139 140 Potassium 3.5 3.3 L Chloride 106 105 Carbon Dioxide 22 26 BUN 25 H 17 Creatinine 1.01 0.95 Estimated GFR > 60 > 60 BUN/Creatinine Ratio 24.8 H 17.9 Glucose 124 H 107 Calcium 10.0 9.2 Total Bilirubin 0.7 AST 108 H ALT 177 H Alkaline Phosphatase 86 Total Protein 8.1 Albumin 4.7 Globulin 3.4 Albumin/Globulin Ratio 1.4 Lipase 110 PFSH Social History household members: spouse Smoking Status: Never smoker alcohol intake: current Assessment & Plan Assessment and plan (1) Small bowel obstruction: Status: Acute (2) Umbilical hernia: Status: Acute Assessment & Plan narrative: His abdomen is MUCH better, loops of small intestines PAPLATED and REDUCED from the umbilical hernia, NEEDS to be fixed BEFORE discharge, he asked for that and IT IS REASONABLE, will start Full liquids and advance to regular diet for dinner, and NPO after midnight for surgery tomorrow at 11:45 AM. Time-Based Coding :: [TOTAL MINUTES] spent with patient and on the chart (including review of chart, obtaining history, exam, reviewing outside data, placing orders, documenting exam and treatment plan, and counseling patient) on [DATE]. Quality VTE Deep Vein Thrombosis/Pulmonary Embolism Present on Admission: No
--- NOTE | 2024-04-17 11:05 | PM.PN.1 ---
Subjective Subjective Interval history: S: this hernia tomorrow morning. his abdomen is much improved. His umbilical hernia does continue to protrude. It was reduced by the surgeon this morning. The surgeon will repair the hernia tomorrow morning. Exam Vital Signs (past 8 hours): - 04/17/24 04:00 Temperature 98.5 F Pulse Rate 72 Respiratory Rate 14 Blood Pressure 153/76 H Pulse Oximetry 95 Oxygen Flow Rate 0 Oxygen Delivery Method Room Air Oxygen Flow Rate 0 Narrative Exam Narrative: NAD, alert and oriented. Fluent speech. Lungs are clear, normal rate and effort. Heart is regular, no murmur gallop or rub. Abdomen is soft, non distended. Umbilical hernia which currently is flat. Extremities are free of edema. Objective Labs 04/17/24 04:46 04/17/24 04:46 Labs: Laboratory Results - last 24 hr 04/16/24 04/17/24 12:32 04:46 WBC 8.5 9.6 RBC 4.98 5.07 Hgb 15.0 15.3 Hct 43.7 44.8 MCV 87.7 88.3 MCH 30.2 30.1 MCHC 34.4 34.1 RDW 13.0 12.9 Plt Count 195 215 Neut % (Auto) 70.8 59.4 Lymph % (Auto) 14.7 L 24.9 L [place] % (Auto) 11.7 11.0 Eos % (Auto) 1.3 L 3.9 Baso % (Auto) 1.5 0.8 Neut # (Auto) 6000 5700 Lymph # (Auto) 1200 2400 [place] # (Auto) 1000 H 1100 H Eos # (Auto) 100 400 Baso # (Auto) 100 100 Sodium 139 140 Potassium 3.5 3.3 L Chloride 106 105 Carbon Dioxide 22 26 BUN 25 H 17 Creatinine 1.01 0.95 Estimated GFR > 60 > 60 BUN/Creatinine Ratio 24.8 H 17.9 Glucose 124 H 107 Calcium 10.0 9.2 Total Bilirubin 0.7 AST 108 H ALT 177 H Alkaline Phosphatase 86 Total Protein 8.1 Albumin 4.7 Globulin 3.4 Albumin/Globulin Ratio 1.4 Lipase 110 PFSH Social History household members: spouse Smoking Status: Never smoker alcohol intake: current Assessment & Plan Assessment & Plan narrative: 1. Small bowel obstruction, present on admission and improving. 2. Incarcerated umbilical hernia, present on admission and reduced. 3. Hypertension, present on admission and stable. PLAN: -regular diet today. -NPO midnight. -hernia repair tomorrow, April 18. Anticipate discharge home after. ELA: 04/18. He will require a 2nd midnight of hospital care, this supports inpatient status for this hospital encounter and treatment. Time-Based Coding :: [TOTAL MINUTES] spent with patient and on the chart (including review of chart, obtaining history, exam, reviewing outside data, placing orders, documenting exam and treatment plan, and counseling patient) on [DATE]. Quality VTE Deep Vein Thrombosis/Pulmonary Embolism Present on Admission: No
--- NOTE | 2024-04-17 11:22 | CM.DANOTE ---
DCP Assessment Note Pt is a 73yo M here with a SBO and umbilical hernia. [facility] SUBMARINE ADVISORY TEAM WATCH OFFICER reviewed EMR. Per hospitalist, plan is for surgeon to do hernia repair tomorrow, 04.18. anticipate dc home after. Umbilical hernia likely cause of SBO. Per RN, pt having more normal BMs, indep in room. SUBMARINE ADVISORY TEAM WATCH OFFICER met with pt in room. Confirms indep/active at baseline, lives with spouse Jennifer in [place]. Denies DCP/CM needs at this time. P: Anticipate home with spouse support/to transport tomorrow, 04/18 following hernia repair. No identified barriers to safe dc home identified at this time. CM team will continue to follow as needed NATHALY Griffiths Discharge Planning/Care Management CM Discharge Assessment Start: 04/17/24 11:21 Freq: Status: Active Protocol: Document 04/17/24 11:21 (Rec: 04/17/24 11:22 [id number]) Discharge Planning Assessment Assigned Drop Hammer Set Up Operator NATHALY Ledezma DPOA/Assigned Designee Name antoine Rodriguez Contact Information [phone] Advance Directives? No History Provided By Patient,Medical Record Prior Living Arrangements House Household Members spouse Type of transporation used prior to Drives own vehicle admit Independent with ADL's Yes Is patient alert and oriented? Yes Barriers to Discharge No Discharge Plan Home Transportation Arrangement spouse in POV Referrals Initiated None needed Whiteboard Updated in Patient Room with Yes name and ext. # of Drop Hammer Set Up Operator Review Status In Process Please Provide Date Initial DC 04/17/24 Assessment Was Performed Next Review Type Continued Stay Review
[2024-04-17 11:58] VITALS: BP 144/75
[2024-04-17] MEDS: LOSARTAN 50 MG TABLET 100 MG PO (11:58)
[2024-04-17 12:00] VITALS: BP 144/75; PULSE 72; RESP 15; TEMP 36.6; O2SAT 94
--- NOTE | 2024-04-17 15:29 | PC.NURSE ---
Patient tolerated 4 k,riders given, he is up independently in his room. He is going to get regular diet for dinner and will be npo after 0000 for a umbilical hernia repair tomorrow at 1145. No needs at this time.
[2024-04-17 20:31] VITALS: BP 165/81; PULSE 75; RESP 18; TEMP 37.1; O2SAT 98
[2024-04-18] VITALS (18 sets, daily range): BP systolic 117–169; BP diastolic 55–82; PULSE 59–89; RESP 13–93; TEMP 36–37; O2SAT 17–98; BMI 32.6
[2024-04-18 05:19] LABS: Add Manual Diff / Slide Review NO; Basophils Absolute Auto 100 /uL (0-100); Basophils Percent Auto 1.2 % (0-2); Eosinophils Absolute Auto 400 /uL (0-450); Eosinophils Percent Auto 5.9 % (2-4); Hematocrit 44.8 % (41-53); Hemoglobin 15.2 g/dL (13.5-17.5); Lymphocytes Absolute Auto 1900 /uL (1100-4500); Lymphocytes Percent Auto 25.7 % (25-40); Mean Corpuscular HGB Conc 33.9 % (30-36); Mean Corpuscular Volume 88.3 fL (80-100); Monocytes Absolute Auto 900 /uL (0-900); Neutrophils Absolute Auto 4200 /uL (1500-7000); Neutrophils Percent Auto 55.2 % (50-75); Platelet Count 200 X10^3/uL (150-400); Red Blood Cell Count 5.08 X10^6/uL (4.5-5.9); Red Cell Distribution Width 13.2 % (11.6-14.8); White Blood Cell Count 7.5 X10^3/uL (4.5-11.0)
[2024-04-18 05:33] LABS: BUN Creatinine Ratio 12.6 (6-22); Blood Urea Nitrogen 12 mg/dL (9-20); Calcium 9.4 mg/dL (8.4-10.2); Carbon Dioxide 23 mmol/L (22-32); Chloride 107 mmol/L (98-107); Estimated Glomerular Filt Rate > 60 mL/min (>60); Glucose 100 mg/dL (80-110); HEMOLYSIS < 15 (0-50); Potassium 3.4 mmol/L (3.4-5.1); Sodium 140 mmol/L (137-145)
[2024-04-18] MEDS: LACTATED RINGERS 1,000 ML 42 ML IV ×2 (06:05→11:12)
--- NOTE | 2024-04-18 07:33 | PM.PN.1 ---
Subjective Subjective Interval history: Summary: Admitted for SBO and hernia. Is going to have a hernia repair today. S: Doing well this morning. No problems with hernia pain. He was scheduled for a hernia repair this morning. Rationale for this is incarcerated hernia with small bowel obstruction. High likelihood of recurrent SBO and incarceration. Exam Vital Signs (past 8 hours): Oxygen Delivery Method Room Air Oxygen Flow Rate 0 Narrative Exam Narrative: NAD, alert and oriented. Fluent speech. Lungs are clear, normal rate and effort. Heart is regular, no murmur gallop or rub. Abdomen is soft, non distended. Non-tender reduced umbilical hernia. Extremities are free of edema. Objective Labs 04/18/24 04:47 04/18/24 04:47 Labs: Laboratory Results - last 24 hr 04/18/24 04:47 WBC 7.5 RBC 5.08 Hgb 15.2 Hct 44.8 MCV 88.3 MCH 30.0 MCHC 33.9 RDW 13.2 Plt Count 200 Neut % (Auto) 55.2 Lymph % (Auto) 25.7 [place] % (Auto) 12.0 Eos % (Auto) 5.9 H Baso % (Auto) 1.2 Neut # (Auto) 4200 Lymph # (Auto) 1900 [place] # (Auto) 900 Eos # (Auto) 400 Baso # (Auto) 100 Sodium 140 Potassium 3.4 Chloride 107 Carbon Dioxide 23 BUN 12 Creatinine 0.95 Estimated GFR > 60 BUN/Creatinine Ratio 12.6 Glucose 100 Calcium 9.4 PFSH Social History household members: spouse Smoking Status: Never smoker alcohol intake: current Assessment & Plan Assessment & Plan narrative: 1. Small bowel obstruction, present on admission and improving. 2. Incarcerated umbilical hernia, present on admission and reduced. 3. Hypertension, present on admission and stable. PLAN: -hernia repair today, April 18. Anticipate discharge home after. ELA: 04/18 or 04/19 depending on postoperative course. He will require a 2nd midnight of hospital care, this supports inpatient status for this hospital encounter and treatment. Time-Based Coding :: [TOTAL MINUTES] spent with patient and on the chart (including review of chart, obtaining history, exam, reviewing outside data, placing orders, documenting exam and treatment plan, and counseling patient) on [DATE]. Quality VTE Deep Vein Thrombosis/Pulmonary Embolism Present on Admission: No
[2024-04-18] MEDS: METOPROLOL ER 50 MG TABLET 25 MG PO (08:26)
[2024-04-18] MEDS: CHLORTHALIDONE 25 MG TABLET PO (08:26)
[2024-04-18] MEDS: dilTIAZem CD 120 MG CAP 240 MG PO (08:27)
[2024-04-18] MEDS: LOSARTAN 50 MG TABLET 100 MG PO (08:27)
--- NOTE | 2024-04-18 10:03 | PM.OP.1 ---
Operative Date/Time/Diagnoses Date of procedure: 04/18/24 Time of procedure: 12:02 Pre-op diagnosis: Umbilical hernia with intestines contents. Post-op diagnosis: same Procedure & Clinicians Procedure: Umbilical hernia Same procedure as scheduled: Yes Surgeon: Jaki Robin Click Yes if Unassisted: Yes Anesthesia Type: General and Local Operative Notes Specimen(s): none sent Blood products transfused: none Procedure in detail: OPERATIVE / PROCEDURE NOTE Andrzej Gonzales, 1950, 73, Male CSN: [id number] 04/18/24 Preoperative diagnosis: Umbilical hernia. Postoperative diagnosis: Same with omentum contents only. Procedure: Open umbilical herniorrhaphy with primary repair - no mesh was used. Surgeon: Jaki Robin MD Cardiac Technologist Surgeon: NONE Anesthesia: General Endotracheal Anesthesia + Local 1% Xylocaine With Epinephrine, 0.5% Marcaine, mixed, 50% : 50%. Specimen(s): NONE. Estimated Blood Loss: Less than 5 ml. Drain: None. Complications: None. Condition/Disposition: Stable, Extubated, to PACU Indications: This 80 y.o.-year-old male bowel obstruction, along with a chronic small umbilical hernia. Open umbilical herniorrhaphy with primary repair were elected. After informed consent was signed, knowing the risks and benefits, possible alternatives and potential complications of the procedure including but not limited to: bleeding, infection, incisional hernia and possibly the need for further surgeries Description of procedure: The patient was appropriately identified in the holding area. Appropriate IV antibiotic Ancef 2 gm was given communications technologist to OR (operating room). Hibiclens abdominal skin prep was performed in the holding area and jakub hose and sequential compression devices were placed on the lower extremities bilaterally and activated. Pt voided his urinary bladder communications technologist to OR. The patient was then brought to the operating room, and placed on the operating table in the supine position. A time-out was completed verifying correct patient and procedure. Anesthesia endotracheally intubated the patient uneventfully and general endotracheal anesthesia was started. The abdomen was prepped and draped in the usual sterile fashion. The local anesthetic mixture mentioned above was used to infiltrate the planned incisions sites starting intradermally raising a wheal at the skin level, and through the layers all the way to the preperitoneal level where another wheal was raised, preemptively before making any incisions and post operatively at the end of the procedure. A 3 cm incision was made in a natural skin crease intra-umbilically, dissection was carried down to the fascial hernia defect, the fascial defect was 1.5 cm in greatest dimension, the peritoneal cavity was entered under direct visualization safely; careful inspection revealed no bowels or solid organs noted in the vicinity of the incision. A [id number] sutures with 1-Ethibond were placed sequentially for future closure of this umbilical hernia fascial defect at the end of the procedure to complete the umbilical herniorrhaphy. The pre-placed 1-Ethibond suture was tied to approximate the fascial defect and complete the umbilical herniorrhaphy. Further more local anesthetic was injected to the skin of the incision. The skin was then approximated using 4-0 antibacterial Monocryl in a subcuticular fashion, followed by the application of Dermabond / topical skin adhesive. The patient tolerated the procedure very well without any complications, was extubated in the OR and was taken to the PACU (postanesthesia care unit) in stable condition. Complications: none Post-operative Condition: stable Disposition: PACU
[2024-04-18] MEDS: POTASSIUM CHLORIDE IN WATER 10 MEQ/100 ML PIGGYBACK 100 MEQ IV ×2 (10:15→12:59)
--- NOTE | 2024-04-18 11:06 | PM.PN.1 ---
Subjective Subjective Date Patient Seen: 04/18/24 Time Patient Seen: 11:06 Exam Vital Signs (past 8 hours): - 04/18/24 08:00 04/18/24 08:26 04/18/24 08:27 Temperature 98.1 F Pulse Rate 85 89 89 Respiratory Rate 16 Blood Pressure 160/79 H 169/79 H 169/79 H Pulse Oximetry 95 Oxygen Delivery Method Room Air Oxygen Flow Rate 0 Narrative Exam Narrative: His hernia is IN, reduced this morning, will proceed today, NOW, with open umbilical herniorrhaphy to prevent bowel obstruction or worse bowel ischemia in the future. Objective Labs 04/18/24 04:47 04/18/24 04:47 Labs: Laboratory Results - last 24 hr 04/18/24 04:47 WBC 7.5 RBC 5.08 Hgb 15.2 Hct 44.8 MCV 88.3 MCH 30.0 MCHC 33.9 RDW 13.2 Plt Count 200 Neut % (Auto) 55.2 Lymph % (Auto) 25.7 [place] % (Auto) 12.0 Eos % (Auto) 5.9 H Baso % (Auto) 1.2 Neut # (Auto) 4200 Lymph # (Auto) 1900 [place] # (Auto) 900 Eos # (Auto) 400 Baso # (Auto) 100 Sodium 140 Potassium 3.4 Chloride 107 Carbon Dioxide 23 BUN 12 Creatinine 0.95 Estimated GFR > 60 BUN/Creatinine Ratio 12.6 Glucose 100 Calcium 9.4 PFSH Social History household members: spouse Smoking Status: Never smoker alcohol intake: current Assessment & Plan Assessment and plan (1) Umbilical hernia: Status: Acute Plan His hernia is IN, reduced this morning, will proceed today, NOW, with open umbilical herniorrhaphy to prevent bowel obstruction or worse bowel ischemia in the future. Time-Based Coding :: [TOTAL MINUTES] spent with patient and on the chart (including review of chart, obtaining history, exam, reviewing outside data, placing orders, documenting exam and treatment plan, and counseling patient) on [DATE]. Quality VTE Deep Vein Thrombosis/Pulmonary Embolism Present on Admission: No
[2024-04-18] MEDS: ACETAMINOPHEN 325 MG TABLET 975 MG PO (11:09)
[2024-04-18] MEDS: CEFAZOLIN 2 GM/100 ML PREMIX 100 ML IV (11:28)
--- NOTE | 2024-04-18 11:30 | SUR.OPER ---
Supine on padded OR bed, head on pillow, arms secured on padded arm boards at <90 degrees abduction, legs uncrossed, safety belt at thigh, tape over blanket over lower legs.
[2024-04-18] MEDS: LIDOCAINE 1% W/EPI 20 ML INJ (11:38)
--- NOTE | 2024-04-18 11:42 | CM.DPNOTE ---
DCP note IRON MELTER reviewed EMR. Per chart, pt scheduled for hernia surgery at 11:45 this morning. Per PN, likely home today post op pending medical stability. P: Anticipate home with spouse support today, 04/18 following hernia repair. No identified barriers to safe dc home identified at this time. CM team will continue to follow as needed NATHALY Griffiths
[2024-04-18] MEDS: BUPIVACAINE 0.5% (PF) 30 ML VIAL INJ (11:51)
--- NOTE | 2024-04-18 12:11 | SUR.OPER ---
PATIENT VOID X1 IN OR.
[2024-04-18] MEDS: SENNOSIDES 8.6 MG TABLET 17.2 MG PO (13:01)
[2024-04-19 01:00] VITALS: O2SAT 97
[2024-04-19 05:00] VITALS: O2SAT 98
[2024-04-19 05:33] LABS: BUN Creatinine Ratio 12.5 (6-22); Blood Urea Nitrogen 11 mg/dL (9-20); Calcium 9.4 mg/dL (8.4-10.2); Carbon Dioxide 25 mmol/L (22-32); Chloride 104 mmol/L (98-107); Estimated Glomerular Filt Rate > 60 mL/min (>60); Glucose 123 mg/dL (80-110); HEMOLYSIS < 15 (0-50); Potassium 3.3 mmol/L (3.4-5.1); Sodium 136 mmol/L (137-145)
--- NOTE | 2024-04-19 07:59 | PM.DS.1 ---
History of Present Illness History of Present Illness Chief complaint: abd px, vomiting Narrative: From ED doctor: Patient is a 73-year-old male here for evaluation of abdominal pain, bloating and vomiting. He states that the symptoms started approximately 0700 hours this morning. Went to bed last night without any issues. Woke up this morning without any symptoms. Urinating without any issues. Had a bowel movement this morning. Is still passing flatus. He does have an umbilical hernia that has been there for years. He has been unable to reduce it this morning. The hernia was reduced by the ED physician. Surgery was consulted this AM. Additional information: He developed acute abdominal pain this morning. This is diffuse and lower abdomen on both the left in the right. He also had a distended and purple umbilical hernia. He was a chronic hernia, which is easy to reduce in his frequently out. It was rarely tender but this morning was very tender. He presented to the ED where the physician reduced the hernia. He was about 50% improved. He was vomiting multiple times this morning before presentation. He notes flatus and BM earlier today. He was history of 2 inguinal hernia repairs but no other abdominal surgery. The surgeon saw him in the ED and recommends NPO, and analgesia. CT abdomen had the appearance of a bowel obstruction without a clear transition point. Discharge Providers Provider Date of admission: 04/17/24 11:15 Discharge Date: 04/19/24 Primary care physician: CHANTALE Mead Consults: 04/16/24 14:23 Consult to General Surgery Stat Comment: Consulting Provider: Jaki Robin Reason for consultation: Small-bowel obstruction Has provider been notified: Yes 04/18/24 12:32 Consult to Discharge Planning Routine Comment: Discharge provider: Zia Perez MD Summary Hospital Course Discharge Diagnosis: 1. Small bowel obstruction, present on admission and resolved. 2. Incarcerated umbilical hernia, present on admission and repaired surgically. 3. Hypertension, present on admission and stable. Hospital Course: The patient was admitted for umbilical hernia incarceration complicated by bowel obstruction. This was reduced and his out bowel obstruction improved. It was felt that the patient will require correction of the surgically the prevent this incarceration from recurring. He underwent surgical repair on April 18 without complications and did well postoperatively. He was stable for discharge on 04/19. Status at Discharge Cognitive/behavioral status at discharge: at baseline, oriented Functional status at discharge: independent ambulation Overall status at discharge: patient is back to baseline Time Spent with Patient Time spent: Greater than 30 minutes Exam Vital Signs (past 8 hours): - 04/19/24 01:00 04/19/24 05:00 Pulse Oximetry 97 98 Oxygen Delivery Method Room Air Room Air Oxygen Flow Rate 0 0 Oxygen Delivery Method Room Air Oxygen Flow Rate 0 Narrative Exam Narrative: NAD, alert and oriented. Fluent speech. Lungs are clear, normal rate and effort. Heart is regular, no murmur gallop or rub. Abdomen is soft, non distended. Extremities are free of edema. Objective Imaging CT scan - abdomen: Radiologist's impression: 1. Small bowel obstruction without discrete transition point. Secondary cause of the obstruction is not identified by CT. The umbilical hernia may have previously contained a loop of bowel which caused the obstruction which is reduced prior to CT evaluation. Correlate with clinical history. 2. Small fat containing umbilical hernia with mild inflammatory changes. 3. Moderate degenerative changes of the lumbar spine. Labs 04/18/24 04:47 04/19/24 05:01 Labs: Laboratory Results - last 24 hr 04/19/24 05:01 Sodium 136 L Potassium 3.3 L Chloride 104 Carbon Dioxide 25 BUN 11 Creatinine 0.88 Estimated GFR > 60 BUN/Creatinine Ratio 12.5 Glucose 123 H Calcium 9.4 PFSH Social History household members: spouse Smoking Status: Never smoker alcohol intake: current Discharge Assessment & Plan Assessment and Plan Assessment: 1. Small bowel obstruction, present on admission and resolved. 2. Incarcerated umbilical hernia, present on admission and repaired surgically. 3. Hypertension, present on admission and stable. Plan of Treatment: Stable for discharge home, we will follow up with surgery in the next 2 weeks as scheduled for a postoperative check. Discharge Plan Discharge Plan Patient Disposition: Home Provider Discharge Comment: Stable for discharge home after repair of his umbilical hernia. His initial presentation was for bowel obstruction, this is resolved. Discharge orders & Medications Prescriptions: New oxycodone-acetaminophen [Percocet] 5-325 mg tablet 1 tab PO Q4-6H PRN (Reason: pain) Qty: 25 0RF sennosides-docusate sodium [Senna-S] 8.6-50 mg tablet 2 tab-cap PO BEDTIME Qty: 30 3RF Continued potassium chloride 10 mEq tablet extended release 10 meq PO 4XD chlorthalidone 25 mg tablet 25 mg PO QAM tadalafil 10 mg tablet 10 mg PO DAILY PRN (Reason: Erectile Dysfunction) diltiazem HCl 240 mg capsule,ext.rel 24h degradable 240 mg PO DAILY metoprolol succinate 50 mg tablet extended release 24 hr 25 mg PO QAM losartan 100 mg tablet 100 mg PO DAILY omeprazole 10 mg Capsule,Delayed Release(Dr/Ec) 10 mg PO DIRECTED Rx Instructions: every 36 hours cholecalciferol (vitamin D3) 50 mcg (2,000 unit) Capsule 50 mcg PO DAILY Adults Multivitamin 18 mg iron-400 mcg-25 mcg Tablet 1 tab PO DAILY Follow up/Referrals: Patricia Fontaine ARNP [Primary Care Provider] - Discharge Health Status Multidrug resistant organism: No MDRO Diet/Activity/Treatments Diet: Regular Skin/Wound/Dressing Care Report to your healthcare provider any signs of infection, such as:: chills, fever Visit Report/Discharge Packet Instructions: DI for Hernia Repair, [facility]: Wound Care Stand Alone Forms: Patient Portal/API Discharge Data Primary Care Provider: Patricia Fontaine Quality VTE Deep Vein Thrombosis/Pulmonary Embolism Present on Admission: No MIPS - DC The patient has a history of heart transplant or Left Ventricular Assist Device (LVAD). If yes, STOP here.: No The patient has current or prior documentation of left ventricular ejection fraction (LVEF) less than or equal to 40%, or moderate or severely depressed left ventricular systolic function.: No
[2024-04-19 08:36] VITALS: BP 144/63; PULSE 66; RESP 14; TEMP 36.4; O2SAT 95
[2024-04-19 08:37] VITALS: BP 144/63; PULSE 66
[2024-04-19] MEDS: LOSARTAN 50 MG TABLET 100 MG PO (08:37)
[2024-04-19] MEDS: SENNOSIDES 8.6 MG TABLET 17.2 MG PO (08:37)
[2024-04-19] MEDS: dilTIAZem CD 120 MG CAP 240 MG PO (08:37)
[2024-04-19 08:38] VITALS: BP 144/63; PULSE 66
[2024-04-19] MEDS: CHLORTHALIDONE 25 MG TABLET PO (08:38)
[2024-04-19] MEDS: METOPROLOL ER 50 MG TABLET 25 MG PO (08:38)
[2024-04-19] MEDS: ACETAMINOPHEN 325 MG TABLET 975 MG PO (08:43)
[2024-04-19 09:00] VITALS: O2SAT 95
[2024-04-19] MEDS: POTASSIUM CHLORIDE 20 MEQ TAB 40 MEQ PO (09:34)
--- NOTE | 2024-04-19 10:42 | CM.DPNOTE ---
DCP Note LEADERSHIP INTERN reviewed EMR. Per hospitalist in morning rounds, stable for dc home after umbilical hernia repair yesterday, SBO resolved. Pt left with spouse prior to being seen by this LEADERSHIP INTERN. P: dc home today with spouse, no CM needs. NATHALY Griffiths
== END 2024-04-19 09:55 | disposition home or self-care (01) | DRG 355 ==
LOC: ED 14:32 → AC 14:34
PROVIDERS: Surgery; Admitting Provider Hospitalist; Emergency Provider Emergency Medicine; PCP Nurse Practitioner Family; Referring Provider Emergency Medicine; Visit Provider Hospitalist
PROC: 0WQF0ZZ Repair Abdominal Wall, Open Approach (ICD-10-PCS; principal; 2024-04-18 11:45)
DX: K42.0 Umbilical hernia with obstruction, without gangrene (principal); I10 Essential (primary) hypertension; K21.9 Gastro-esophageal reflux disease without esophagitis
CPT/HCPCS: 36415; 49591; 74177; 80048; 80053; 83690; 85025; 96374; 99233; 99284; 99285; G0378; J0690; J1100; J1644; J2270; J2405; J2704; J3010; J3490; Q9967

== ENCOUNTER → 2024-05-31 13:33 | Outpatient (ROUT) | payer MEDICARE, OTHER, SELFPAY ==
[2024-04-16 15:20] VITALS: BMI 32.6
== END ==
PROVIDERS: PCP Nurse Practitioner Family
DX: L24.4 Irritant contact dermatitis due to drugs in contact with skin (principal); T49.8X5A Adverse effect of other topical agents, initial encounter; L08.9 Local infection of the skin and subcutaneous tissue, unspecified
CPT/HCPCS: 87070; 87075; 87205